=== PATIENT | female | born 1960 | race Two or more races ===

== ENCOUNTER 2016-11-11 11:52 | Day surgery (SDC) | payer OTHER ==
--- NOTE | 2016-10-31 15:10 | CONS ---
DATE OF ADMISSION: 03/22/2016 DATE OF CONSULTATION: Dear Dr. Saravia: I thank you very much for this kind referral. HISTORY OF PRESENT ILLNESS: Ms. Mojgan Driver is a 55-year-old female patient who has been referred to me for further evaluation of upper abdominal pain associated with bloating. She also complains of chronic heartburn. She has nausea with occasional vomiting. The patient has been taking omepraz ole and Zantac, without relief. There is no past history of peptic ulcer disease. She is not takin g any nonsteroidal anti-inflammatory agents. Her appetite has been good, and there is no history of significant weight loss. There is no history of gallstones. She does not have any fever, chills o r jaundice. There is no history of liver disease. The patient also gives a history of constipation . She had a colonoscopy 2 years ago and no colon neoplasm was identified. The patient has been samantha ing MiraLax for constipation. She is hypertensive. She has diabetes. There is no history of heart disease or lung problems. There is no history of kidney disease. She has hyperlipidemia. She has a history of depression and she is on antidepressants. SOCIAL HISTORY: She is a nonsmoker. She does not abuse alcohol. FAMILY HISTORY: Negative for gastrointestinal tract neoplasm. ALLERGIES: THERE IS NO HISTORY OF SIGNIFICANT DRUG ALLERGIES. MEDICATIONS: 1. Omeprazole. 2. Zantac. 3. MiraLax. 4. Lantus insulin. 5. Metformin. 6. Glipizide. 7. Benazepril. 8. Abilify. 9. Citalopram. 10. Simvastatin. PHYSICAL EXAMINATION: VITAL SIGNS: She is 5 feet 2 inches tall and she weighs 197 pounds. HEART: Examination of the heart reveals normal first and second heart sounds. LUNGS: Clear. ABDOMEN: Soft, without any distention. Liver and spleen are not palpable. There are no masses. T here is no focal tenderness. Normal bowel sounds are heard. CENTRAL NERVOUS SYSTEM: Examination does not reveal any focal neurological deficits. IMPRESSION: 1. Upper abdominal pain associated with bloating, nausea and vomiting. 2. The patient has been taking omeprazole and Zantac, without relief. 3. Chronic heartburn, not responding to therapy. 4. Constipation. 5. The patient is on MiraLax. 6. She had a colonoscopy 2 years ago and no colon neoplasm was identified. 7. Hypertension. 8. Diabetes mellitus. 9. History of depression and the patient is on antidepressants. 10. Hyperlipidemia. 11. Obesity. PLAN: 1. Continue omeprazole, Zantac and MiraLax. 2. Endoscopic examination for further evaluation. 3. Because of the obesity with a short thick neck and a history of taking antidepressants, which ma kes her resistant to narcotics, she needs monitored anesthesia care for the procedure. The procedure and possible complications were well explained to the patient. She understands and co nsents to the procedure. I thank you once again. With warmest personal regards, Dictated By: ROSIE MOSQUEDA/NAILA Conf#: [id number] DID#: [id number]
[~2016-11-11 11:52] MED LIST: BENA10TA48 PO; CYCL-319 PO; CYCL7.5T9 PO; DOCU100C PO; GABA300C16 PO; HYDR-762 PO; IBUP-1542 PO; MECL-77 PO; METF-382 PO; NAPR-260 PO; OMEP40CA6 PO; ONDA4TAB8 PO; RANI300T PO; RISP1TAB PO; SENN-53 PO; SERT-165 PO; TOPI-44 PO; TRAM-40 PO; ZOC10 PO; [UNRECOGNIZED DRUG - OTHER]; [UNRECOGNIZED DRUG - OTHER] PO
[2016-11-11] MEDS ORDERED: abilify PO (12:43)
[2016-11-11] MEDS ORDERED: citalopram PO (12:43)
[2016-11-11] MEDS ORDERED: glipizide PO (12:43)
[2016-11-11] MEDS ORDERED: lantus SC (12:43)
[2016-11-11] MEDS ORDERED: miralax PO (12:43)
[2016-11-11] MEDS ORDERED: PROPOFOL 20 ML ONE (13:27)
--- NOTE | 2016-11-11 14:25 | GILP ---
DATE OF PROCEDURE: 11/11/2016 NAME OF PROCEDURES: Esophagogastroduodenoscopy and biopsy. SURGEON: Rosie Campoverde MD PREOPERATIVE DIAGNOSES: 1. Chronic heartburn. 2. Abdominal pain. POSTOPERATIVE DIAGNOSES: 1. Gastroesophageal reflux disease. 2. Gastritis with erosions. 3. Gastric mucosal biopsies were taken for Helicobacter pylori test. INDICATION FOR THE PROCEDURE: Ms. Mojgan Driver is a 55-year-old female patient who had upper abdom inal pain and chronic heartburn, not responding to therapy. The patient was scheduled for endoscopi c examination for further evaluation. The procedure and possible complications are well explained to the patient. The patient understood and consented to the procedure. DESCRIPTION OF PROCEDURE: Under the influence of anesthesia, the gastroscope was carefully introduc ed into the esophagus and under direct vision, it was advanced to the stomach and through the pyloru s into the duodenal bulb and descending duodenum. FINDINGS: ESOPHAGUS: The patient had gastroesophageal reflux disease. STOMACH: She had gastritis with erosions. Gastric mucosal biopsies were taken for H. pylori test. DUODENUM: Normal. She tolerated the procedure very well and there was no complication from the procedure. At the end of the procedures, she was awake with stable vital signs and she was discharged home to the care of her family. IMPRESSION: 1. Gastroesophageal reflux disease. 2. Gastritis with erosions. 3. Gastric mucosal biopsies were taken for Helicobacter pylori test. PLAN: 1. Continue omeprazole and Zantac. 2. Await H. pylori test report. Dictated By: ROSIE MOSQUEDA/NAILA Conf#: [id number] DID#: [id number] CC: ROSIE CAMPOVERDE MD;*End*
== END 2016-11-11 14:29 | disposition home or self-care (01) ==
LOC: GIL 11:52
PROVIDERS: ATTEND Internal Medicine Gastroenterology
DX: K21.9 Gastro-esophageal reflux disease without esophagitis (principal); K29.60 Other gastritis without bleeding; I10 Essential (primary) hypertension; E11.9 Type 2 diabetes mellitus without complications; E78.5 Hyperlipidemia, unspecified
CPT/HCPCS: 43239; 82962; 87081; Z7610